=== PATIENT | male | born 1995 | race Caucasian/White ===

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

== ENCOUNTER 2017-04-08 08:51 | Emergency (ER) | payer BC, OTHER ==
[2017-04-08 08:59] VITALS: BP 154/90
--- NOTE | 2017-04-08 09:22 | ED Physician Documentation ---
PD HPI MALE - Stated complaint Stated Complaint: MALE - Chief complaint Chief Complaint: General - History obtained from History obtained from: Patient - History of Present Illness Timing - duration: Days Timing - details: Gradual onset, Still present Associated symptoms: Dysuria, Discharge. No: Genital sore / lesion, Testiclar pain, Scrotal swelling, Abdominal pain PD HPI MALE CONTRIB FACTORS: Sexually active Similar symptoms before: Has not had sx before Recently seen: Not recently seen Review of Systems Constitutional: denies: Fever, Chills Throat: denies: Sore throat GI: denies: Abdominal Pain, Nausea, Vomiting, Diarrhea : reports: Dysuria, Discharge Skin: denies: Rash PD PAST MEDICAL HISTORY - Past Medical History Cardiovascular: None Respiratory: None Neuro: None Endocrine/Autoimmune: None GI: None : None HEENT: None Psych: None Musculoskeletal: None Derm: None - Past Surgical History Past Surgical History: Yes General: Other - Present Medications Home Medications: Ambulatory Orders Medication Instructions Recorded Confirmed No Known Home Medications [No 10/21/16 04/08/17 Known Home Medications] - Allergies Allergies/Adverse Reactions: Allergies Allergy/AdvReac Type Severity Reaction Status Date / Time No Known Drug Allergies Allergy Verified 04/08/17 08:59 - Social History Does the pt smoke?: No Smoking Status: Never smoker Does the pt drink ETOH?: No Does the pt have substance abuse?: No - Immunizations Immunizations are current?: Yes - POLST Patient has POLST: No PD ED PE NORMAL - Vitals Vital signs reviewed: Yes - General General: Alert and oriented X 3, No acute distress, Well developed/nourished - HEENT HEENT: Pharynx benign - Abdomen Abdomen: Soft, Non tender - Male Male : Other (no scrotal swelling nor tenderness. No inguinal nodes. Penile shaft and glans appear normal. Some yellowish discharge at meatus. ) - Rectal Rectal: Deferred - Derm Derm: Normal color, Warm and dry Results - Vitals Vitals: Oxygen O2 Source Room air PD MEDICAL DECISION MAKING - ED course Complexity details: considered differential (symptoms and some meatal discharge c/w STD, will treat empirically for that, and obtained culture. ), d/w patient Departure - Departure Disposition: 01 Home, Self Care Clinical Impression: Urethritis Condition: Stable Record reviewed to determine appropriate education?: Yes Instructions: ED STD Male Treated Comments: The culture will result in 2-3 days and confirm which infection you have. It does sound likely to be an STD. You are treated for both chlamydia and gonorrhea with the medications today. Recheck if this is not improving symptoms over the next few days as the infection should clear. Once you get your culture results, you should contact your partner to pass on the information. Avoid unprotected intercourse. Drink lots of fluids. Discharge Date/Time: 04/08/17 10:25
[2017-04-08] MEDS ORDERED: AZITHROMYCIN 250 MG TABLET PO STA (09:50)
[2017-04-08] MEDS ORDERED: MAG HYDROX/AL HYDROX/SIMETH 30 ML UDC PO STA (09:50)
[2017-04-08] MEDS ORDERED: cefTRIAXone 500 MG VIAL IM STA (09:50)
[2017-04-08] MEDS ORDERED: AZITHROMYCIN 250 MG TABLET PO ONE (09:58)
[2017-04-08] MEDS ORDERED: MAG HYDROX/AL HYDROX/SIMETH 30 ML UDC ONE (09:59)
[2017-04-08] MEDS ORDERED: cefTRIAXone 500 MG VIAL ONE (09:59)
[2017-04-08] MEDS ORDERED: LIDOCAINE 1% 2 ML VIAL ONE (10:02)
== END 2017-04-08 10:25 | disposition home or self-care (01) ==
LOC: ED 08:51
DX: N34.2 Other urethritis (principal)
CPT/HCPCS: 87491; 87591; 96372; 99283; A9270